=== PATIENT | male | born 1995 | race Caucasian/White ===

== ENCOUNTER 2022-08-12 15:07 | Emergency (ER) | payer SELFPAY ==
[2022-08-12] VITALS (25 sets, daily range): BP systolic 124–154; BP diastolic 83–101; PULSE 81–107; RESP 16; TEMP 37.3; O2SAT 93–99
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
[2022-08-12] MEDS: ONDANSETRON 2 MG/ML inj 4 MG IVP (15:20)
[2022-08-12 15:25] LABS: Basophils Percent Auto 0.6 % (0.0-3.0); Eosinophils Percent Auto 2.4 % (0.0-7.0); Hematocrit 49.7 % (37.0-53.0); Hemoglobin* 16.4 gm/dL (13.5-17.5); Lymphocytes Percent Auto 16.1 % (20-44); Mean Corpuscular HGB Conc 33 gm/dL (32-36); Mean Corpuscular Hemoglobin 29 pg (26-34); Mean Corpuscular Volume 89 fL (80-100); Monocytes Percent Auto 5.4 % (0.0-11.0); Neutrophils Percent Auto 74.5 % (42.0-72.0); Platelet Count* 303 K/uL (140-440); RDW Coefficient of Variation % 12.8 % (11.5-15.5); Red Blood Count 5.57 m/uL (4.30-5.90); White Blood Count* 11.55 K/uL (4.50-11.00)
[2022-08-12 15:40] LABS: Slide Review Reflex No
[2022-08-12] MEDS: HYDROmorphone 0.5 mg/0.5 ml inj IVP (15:42)
[2022-08-12 15:45] LABS: Chloride* 108 mmol/L (96-114); Sodium* 139 mmol/L (135-149)
[2022-08-12 15:46] LABS: Potassium* 3.6 mmol/L (3.6-5.1)
[2022-08-12 15:48] LABS: Creatinine* 0.8 mg/dL (0.5-1.5); Estimated Glomerular Filt Rate 124 ml/min
[2022-08-12 15:49] LABS: Blood Urea Nitrogen* 11 mg/dL (5-24); Calcium* 9.2 mg/dL (8.4-10.6); Carbon Dioxide* 24 mmol/L (20-32); Glucose* 96 mg/dL (60-115)
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
--- NOTE | 2022-08-12 18:55 | ED.NURSE ---
Wrist brace applied to pt L wrist, arm sling applied to pt R arm.
== END 2022-08-12 19:06 | disposition home or self-care (01) ==
PROVIDERS: Emergency Medicine Emergency Medical Services; Emergency Provider Family Medicine; PCP Internal Medicine
DX: S80.211A Abrasion, right knee, initial encounter (principal); S43.011A Anterior subluxation of right humerus, initial encounter; M21.371 Foot drop, right foot; V29.39XA Other motorcycle (driver) (passenger) injured in unspecified nontraffic accident, initial encounter
CPT/HCPCS: 36415; 72148; 73030; 73502; 80048; 85025; 87635; 96374; 96375; 99285; 99291; G0390; J1170; J2405